=== PATIENT | male | born 1990 | race Asian ===

== ENCOUNTER 2019-06-17 16:16 | Emergency (ER) | payer MEDICAID ==
[~2019-06-17] VITALS: Ht 172.7 cm; Wt 100.0 kg
[2019-06-17 16:21] VITALS: BP 112/73
[2019-06-17] MEDS ORDERED: bacitracin 15gm ointment TP ONE (16:40)
[2019-06-17] MEDS ORDERED: LIDOcaine 1% W/epiNEPHrine 1:200,000 10ml vial IJ ONE (16:40)
== END 2019-06-17 17:54 | disposition home or self-care (01) ==
LOC: ER 16:16
DX: S61.211A Laceration without foreign body of left index finger without damage to nail, initial encounter (principal); W26.0XXA Contact with knife, initial encounter; Y93.89 Activity, other specified; Y92.89 Other specified places as the place of occurrence of the external cause; Y99.8 Other external cause status
CPT/HCPCS: 12001; 99282